=== PATIENT | female | born 1985 | race Caucasian/White ===

== ENCOUNTER → 2022-08-18 13:07 | Outpatient (BNVA) | payer BC, SELFPAY | PROVIDERS: PCP Family Medicine; Visit Provider Internal Medicine | DX: R76.8 Other specified abnormal immunological findings in serum (principal); M25.50 Pain in unspecified joint; R21 Rash and other nonspecific skin eruption; L40.9 Psoriasis, unspecified | CPT/HCPCS: 36415; 72202; 73522; 80053; 83516; 85025; 85651; 86003; 86008; 86140; 86160; 86162; 86200; 86235; 86255; 86376; 86704; 86803; 87340 ==

== ENCOUNTER → 2023-04-19 16:36 | Outpatient (BNVA) | payer OTHER, SELFPAY | PROVIDERS: PCP Nurse Practitioner Family; Visit Provider Internal Medicine | DX: R76.8 Other specified abnormal immunological findings in serum (principal); R21 Rash and other nonspecific skin eruption; M25.50 Pain in unspecified joint | CPT/HCPCS: 36415; 80053; 81003; 85025; 85651; 86140 ==